=== PATIENT | female | born 1985 | race Caucasian/White ===

== ENCOUNTER 2017-08-02 22:34 | Emergency (ER) | payer OTHER ==
[2017-08-02] MEDS ORDERED: Lorazepam 1 MG TAB ONE (22:51)
[2017-08-02] MEDS ORDERED: Ondansetron ODT 4 MG TAB ONE (22:51)
== END 2017-08-02 23:22 | disposition home or self-care (01) ==
LOC: SCSER 22:34
DX: F41.9 Anxiety disorder, unspecified (principal); R07.89 Other chest pain
CPT/HCPCS: 93005; Q0162

== ENCOUNTER 2020-07-01 08:18 | Outpatient (CLI) | payer OTHER ==
[2020-07-01 09:09] LABS: BHCG - Serum Negative (NEGATIVE); Pregs Control Background? CLEAR/WHITE (CLR/WHITE); Pregs Control Bar Appear? YES (CONTROL BAR)
[2020-07-01] MEDS ORDERED: Lidocaine 1% PF 10 ML AMP ONE (09:15)
[2020-07-01] MEDS ORDERED: Gadobenate Dimeglumine 529 MG/1 ML (20ML VIAL) ONE (09:15)
[2020-07-01] MEDS ORDERED: EPINEPHrine 1 MG/ML AMP ONE (09:15)
[2020-07-01] MEDS ORDERED: Iopamidol 300 61% 50 ML VIAL FS ONE (09:15)
--- NOTE | 2020-07-01 11:12 | RAD ---
Arthrogram right shoulder HISTORY: Internal derangement. AC separation. FINDINGS: After explaining the procedure and answering all questions, the anterior aspect of the righ t shoulder was prepped and draped in usual sterile fashion. Sterile technique, buffered local anesthesia, fluoroscopic guidance, and an anterior approach were us ed to carefully advance the tip of a 22-gauge spinal needle to the joint capsule at the level of the humeral head. A total of 8 cc liquid mixture containing normal saline, 1% lidocaine, iodinated contrast, and small amounts of gadolinium and epinephrine were then instilled into the joint capsule under fluoroscopic control. Needle was removed and spot images were obtained. Contrast remained within the joint capsule . Patient tolerated the procedure well and was transferred to MRI in good condition for further imaging. IMPRESSION : No evidence of full-thickness rotator cuff tear. MRI is pending.
--- NOTE | 2020-07-01 11:32 | MRI ---
EXAM: MRI Upper Ext Jt Rt W Con DATE: 07/01/2020 10:50 AM INDICATION: Right shoulder injury after being hit by cow one year ago with pain predominantly in the AC joint region COMPARISON: Shoulder arthrogram dated July 01, 2020 FINDING: Multiplanar multisequence MR images were obtained the right shoulder following intra-articu lar administration of a dilute gadolinium solution. Please see the separately dictated right shoulder arthrogram for details concerning the injection technique. There is contrast signal intensity undermining the chondral labral junction of the posterior glenoid labrum and posterior inferior glenoid labrum most evident on images 8 of series 3 through image 14 of series 3. This is also evident on image 20 of series 7. The biceps anchor complex, superior glenoi d labrum and anterior glenoid labrum appear intact. The glenohumeral articular surface appear intact. There is mild tendinosis of the supraspinatus and interspinous without evidence of full-thickness tea r. Small amount of fluid is seen within subacromial subdeltoid space. The biceps tendon is located. The anterior inferior glenohumeral labral ligamentous complex is intact. The AC joint appears within normal limits. No muscular atrophy is evident. No enlarged lymph nodes are present. IMPRESSION: 1. Partial-thickness tear involving the posterior and posterior inferior glenoid labrum. 2. Mild supraspinatus and infraspinous tendinosis. Transcribed Date/Time: 07/01/2020 12:25 PM
== END 2020-07-01 08:19 | disposition home or self-care (01) ==
LOC: RAD 08:18
PROVIDERS: ATTEND Orthopaedic Surgery
DX: S43.101A Unspecified dislocation of right acromioclavicular joint, initial encounter (principal); Z32.00 Encounter for pregnancy test, result unknown; S43.491A Other sprain of right shoulder joint, initial encounter; M67.813 Other specified disorders of tendon, right shoulder
CPT/HCPCS: 23350; 36415; 84703; A9577; J0171; J2001; Q9967

== ENCOUNTER 2021-03-05 06:55 | Outpatient (CLI) | payer OTHER | END 2021-03-05 06:56 | disposition home or self-care (01) | LOC: BICULT 06:55 | PROVIDERS: ATTEND Internal Medicine Gastroenterology | DX: R10.9 Unspecified abdominal pain (principal); R07.9 Chest pain, unspecified | CPT/HCPCS: 76705 ==

== ENCOUNTER 2021-03-20 12:16 | Outpatient (CLI) | payer OTHER ==
[2021-03-20 13:36] LABS: #Eosinphils 0.1 10x3/uL (0.0-0.5); #Monocytes 0.5 10x3/uL (0.0-1.1); #Neutrophils 5.8 10x3/uL (1.5-8.4); %Basophils 0.3 % (0.0-2.0); %Eosinophils 1.3 % (0.0-6.0); %Lymphocytes 29.7 % (18.0-47.0); %Monocytes 5.6 % (0.0-10.0); %Neutrophils 62.7 % (40.0-75.0); Hemoglobin 13.3 g/dL (12.0-15.5); Mean Corpuscular HGB CONC 32.8 g/dL (32.0-36.0); Mean Corpuscular Hemoglobin 28.5 pg (27.0-33.0); Mean Corpuscular Volume 86.9 fl (81.6-98.3); Mean Platelet Volume 9.7 fl (7.4-10.4); Platelet Count 348 10x3/uL (150-450); RBC Distribution Width 12.8 % (11.5-14.5); Red Blood Cell (RBC) Count 4.66 10x6/uL (3.90-5.03); White Blood Cell (WBC) Count 9.3 10x3/uL (3.5-10.5)
[2021-03-20 13:48] LABS: ALT (SGPT) 14 U/L (8-55); AST (SGOT) 15 U/L (5-34); Albumin 4.4 g/dL (3.5-5.0); Alkaline Phosphatase 77 U/L (40-110); Anion Gap 11 mmol/L (10-20); BUN (Urea Nitrogen) 14 mg/dL (7.0-18.7); Bilirubin, Total 0.4 mg/dL (0.2-1.2); Calc. Creatinine Clearance 0 mL/min (70-130); Calcium 10.1 mg/dL (7.8-10.44); Carbon Dioxide 29 mmol/L (22-29); Chloride 103 mmol/L (98-107); Globulin 3.3 g/dL (2.4-3.5); Glucose 105 mg/dL (70-105); Potassium 4.1 mmol/L (3.5-5.1); Protein, Total 7.7 g/dL (6.0-8.3); Sodium 139 mmol/L (136-145)
[2021-03-20 14:01] LABS: BHCG - Serum Negative (NEGATIVE); Pregs Control Background? CLEAR/WHITE (CLR/WHITE); Pregs Control Bar Appear? YES (CONTROL BAR)
[2021-03-20 14:20] LABS: SARS-CoV-2 NAA Rapid Test Not Detected (NotDetected)
== END 2021-03-20 12:17 | disposition home or self-care (01) ==
LOC: LABBT 12:16
PROVIDERS: ATTEND Internal Medicine Cardiovascular Disease
DX: Z01.812 Encounter for preprocedural laboratory examination (principal); R07.9 Chest pain, unspecified; Z20.822 Contact with and (suspected) exposure to COVID-19
CPT/HCPCS: 80053; 84703; 85025; U0002

== ENCOUNTER 2021-03-21 09:55 | Day surgery (SDC) | payer OTHER ==
[2021-03-20 11:42] VITALS: BMI 36.3
[2021-03-21 11:01] LABS: Cardiac Risk 4.5 (Less than 4.5)
[2021-03-21] MEDS ORDERED: Fentanyl 100 MCG/2 ML VIAL ONE (12:14)
[2021-03-21] MEDS ORDERED: Midazolam HCl 2 mg/2 ml Vial ONE (12:14)
[2021-03-21] MEDS ORDERED: Verapamil 5 MG/2 ML VIAL ONE (12:15)
[2021-03-21] MEDS ORDERED: Lidocaine 1% (PF) 30 ML VIAL ONE (12:15)
[2021-03-21] MEDS ORDERED: Heparin 10,000 UNITS/ 10 ML VIAL ONE (12:15)
[2021-03-21] MEDS ORDERED: Nitroglycerin 100MG/250ML BOT 250 ML ONE (12:15)
[2021-03-21] MEDS ORDERED: Iopamidol 370 76% 100 ML VIAL ONE (14:40)
== END 2021-03-21 16:04 | disposition home or self-care (01) ==
LOC: CCL 09:55
PROVIDERS: ATTEND Internal Medicine Cardiovascular Disease
PROC: B2111ZZ Fluoroscopy of Multiple Coronary Arteries using Low Osmolar Contrast (ICD-10-PCS; principal; 2021-03-21)
PROC: 4A023N7 Measurement of Cardiac Sampling and Pressure, Left Heart, Percutaneous Approach (ICD-10-PCS; principal; 2021-03-21)
DX: R07.9 Chest pain, unspecified (principal); R06.02 Shortness of breath; K21.9 Gastro-esophageal reflux disease without esophagitis; Z79.899 Other long term (current) drug therapy; Z88.1 Allergy status to other antibiotic agents; Z88.8 Allergy status to other drugs, medicaments and biological substances; Z91.038 Other insect allergy status
CPT/HCPCS: 80061; 93458; 99152; J1644; J2001; J2250; J3010; Q9967

== ENCOUNTER 2021-12-15 15:36 | Outpatient (CLI) | payer BC | END 2021-12-15 15:37 | disposition home or self-care (01) | LOC: BICMAMMO 15:36 | PROVIDERS: ATTEND Obstetrics & Gynecology | DX: Z12.31 Encounter for screening mammogram for malignant neoplasm of breast (principal); Z80.3 Family history of malignant neoplasm of breast; Z91.89 Other specified personal risk factors, not elsewhere classified | CPT/HCPCS: 77063; 77067 ==